=== PATIENT | male | born 1980 | race African-American/Black ===

== ENCOUNTER 2024-08-08 10:19 | Emergency (ER) | payer SELFPAY ==
[~2024-08-08] VITALS: Ht 165.1 cm; Wt 72.6 kg
[2024-08-08 11:32] LABS: APPEARANCE,URINE CLEAR (CLEAR); BILIRUBIN,URINE NEGATIVE (NEGATIVE); BLOOD, URINE 2+ Ery/uL (NEGATIVE); COLOR,URINE YELLOW (YELLOW); KETONES,URINE NEGATIVE (NEGATIVE); LEUKOCYTE ESTERASE ,URINE NEGATIVE (NEGATIVE); NITRITE, URINE NEGATIVE (NEGATIVE); PROTEIN,URINE TRACE mg/dl (NEGATIVE); UGLUCOSE NEGATIVE (NEGATIVE); UROBILINOGEN,URINE 0.2 EU/dL (0.2)
[2024-08-08 11:59] LABS: ADD URINE CULTURE NO; BACTERIA,URINE 1+ /HPF (None Seen); MUCUS,URINE Few /LPF (None Seen); RBC,URINE 21-50 /HPF (0-2); SQUAMOUS EPITHELIAL CELL,UR 0-2 /HPF (None Seen)
[2024-08-08] MEDS ORDERED: CEPH500C2 PO (12:14)
[2024-08-08 12:23] VITALS: BP 132/76; TEMP 98.6; O2SAT 100
== END 2024-08-08 12:23 | disposition home or self-care (01) ==
LOC: ER 10:38
DX: R30.0 Dysuria (principal); R31.9 Hematuria, unspecified
CPT/HCPCS: 81001

== ENCOUNTER 2024-08-23 08:29 | Emergency (ER) | payer OTHER ==
[~2024-08-23] VITALS: Ht 165.1 cm; Wt 71.7 kg
[~2024-08-23 08:29] MED LIST: CEPH500C2 PO
[2024-08-23 08:49] VITALS: BP 147/92; TEMP 98.2
[2024-08-23] MEDS ORDERED: IBUPROFEN 600 MG TABLET ONE (09:00)
[2024-08-23] MEDS: IBUPROFEN 600 MG TABLET PO ONE (09:02)
[2024-08-23 10:38] VITALS: O2SAT 98
== END 2024-08-23 10:39 | disposition home or self-care (01) ==
LOC: ER 08:32
DX: S80.11XA Contusion of right lower leg, initial encounter (principal); Z79.899 Other long term (current) drug therapy; X58.XXXA Exposure to other specified factors, initial encounter; Y93.89 Activity, other specified; Y92.89 Other specified places as the place of occurrence of the external cause; Y99.0 Civilian activity done for income or pay
CPT/HCPCS: 73590-TC; 73630-TC